=== PATIENT | female | born 1975 | race Caucasian/White ===

== ENCOUNTER 2017-08-01 11:53 | Emergency (ER) | payer MEDICAID ==
[2017-08-01] MEDS: KETOROLAC 60 MG INJ IM (13:11)
[2017-08-01] MEDS: HYDROCODONE/APAP (5/325) TAB PO (13:46)
== END 2017-08-01 13:50 | disposition home or self-care (01) ==
LOC: FTE 11:53
DX: S20.211A Contusion of right front wall of thorax, initial encounter (principal); S09.90XA Unspecified injury of head, initial encounter; E11.9 Type 2 diabetes mellitus without complications; V49.40XA Driver injured in collision with unspecified motor vehicles in traffic accident, initial encounter
CPT/HCPCS: 70450; 71045; 81025; 96372; 99285-25